=== PATIENT | female | born 1970 | race Two or more races ===

== ENCOUNTER → 2020-04-16 16:42 | Outpatient (CLI) | payer OTHER ==
[~2020-04-16 16:42] MED LIST: SYNTHROID50 MCG
== END | disposition home or self-care (01) ==
LOC: LAB 16:42
DX: Z03.818 Encounter for observation for suspected exposure to other biological agents ruled out (principal)

== ENCOUNTER 2020-08-01 06:15 | Emergency (ER) | payer OTHER ==
[~2020-08-01] VITALS: Ht 167.6 cm; Wt 68.0 kg
[2020-08-01] MEDS ORDERED: SYNTHROID200 MCG (06:34)
== END 2020-08-01 11:23 | disposition home or self-care (01) ==
LOC: ER 06:15
DX: L03.011 Cellulitis of right finger (principal)